=== PATIENT | female | born 1995 | race Asian ===

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

== ENCOUNTER 2018-04-24 12:10 | Emergency (ER) | payer MEDICAID ==
[~2018-04-24] VITALS: Ht 147.3 cm; Wt 61.8 kg
[~2018-04-24 12:10] MED LIST: LEVO500 PO
[2018-04-24 12:44] VITALS: BP 129/88
== END 2018-04-24 16:09 | disposition home or self-care (01) ==
LOC: EMS 12:11
DX: L03.116 Cellulitis of left lower limb (principal); L03.115 Cellulitis of right lower limb; F42.4 Excoriation (skin-picking) disorder; Z87.442 Personal history of urinary calculi; Z91.040 Latex allergy status
CPT/HCPCS: 99283